=== PATIENT | female | born 1940 | race Caucasian/White ===

== ENCOUNTER → 2016-12-15 | Outpatient (CLI) | payer OTHER, MEDICAID ==
[~2016-12-15] MED LIST: E-Z-GAS II EFFERVESCENT PACKET (SODIUM BICARB./CITRIC ACID/SIMETHICONE) As Ordered ONE; E-Z-HD 98% w/w 340GM SUSP BTL As Ordered ONE; E-Z-PAQUE 96% w/w SUSP 176GM BTL As Ordered ONE
--- NOTE | 2016-12-16 11:13 | REP ---
Esophagram The procedure was performed under the direct supervision of Dr. Madrigal. The images were reviewed with Dr. Madrigal. 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 The superior mediastinal structures are midline. The heart size is within normal limits. The lungs are clear. Liquid barium and gas producing granules were given in the erect position as well as liquid barium in the prone oblique positions in order to perform a double contrast esophagram examination. The oral and pharyngeal stages of deglutition are unremarkable. Esophageal transport is prompt and efficient and there is no esophagitis, stricture, mucosal ring or hiatal hernia. There is gastroesophageal reflux demonstrated to the level of the thoracic inlet. Impression: There is gastroesophageal reflux demonstrated to the level of the thoracic inlet otherwise unremarkable double contrast esophagram examination. 48 seconds of fluoro time was utilized for this procedure. Reviewed by EVGENY Lopez 12/15/2016 05:19 PSigned by Merlin Madrigal MD 12/16/2016 10:53 A
== END ==
LOC: EDSEX → M RAD 08:35
PROVIDERS: ATTEND Family Medicine
DX: R13.10 Dysphagia, unspecified (principal)

== ENCOUNTER → 2022-01-25 | Outpatient (REF) | payer MEDICARE ==
[2022-01-25 16:07] LABS: BASO # 0.1 10^3/uL (0.0-0.2); BASO % 1.1 % (0.0-1.0); EOS # 0.2 10^3/uL (0.0-0.5); HEMATOCRIT 39.5 % (36.0-47.0); HEMOGLOBIN 12.5 g/dl (12.0-15.5); LYMPH # 1.8 10^3/uL (1.5-5.0); LYMPH % 24.2 % (24.0-44.0); MEAN CORPUSCULAR HEMOGLOBIN 26.7 pg (27.0-33.0); MEAN CORPUSCULAR HGB CONC 31.6 g/dl (32.0-36.5); MEAN CORPUSCULAR VOLUME 84.4 fl (80.0-96.0); MONO # 0.5 10^3/uL (0.0-0.8); MONO % 6.4 % (2.0-8.0); NEUTROPHILS # 4.9 10^3/uL (1.5-8.5); NEUTROPHILS % 65.9 % (36.0-66.0); PLATELET COUNT, AUTOMATED 244 10^3/uL (150-450); RED BLOOD COUNT 4.68 10^6/uL (4.00-5.40); WHITE BLOOD COUNT 7.4 10^3/uL (4.0-10.0)
[2022-01-25 16:28] LABS: ALBUMIN 3.8 GM/DL (3.2-5.2); BILIRUBIN,TOTAL 0.4 MG/DL (0.2-1.0); CALCIUM LEVEL 8.8 MG/DL (8.8-10.2); CREATININE FOR GFR 1.33 MG/DL (0.55-1.30); POTASSIUM SERUM 4.9 MEQ/L (3.5-5.1); TOTAL PROTEIN 7.1 GM/DL (6.4-8.2)
[2022-01-25 19:35] LABS: HEMOGLOBIN A1c 6.1 %
== END ==
LOC: M SFHCCLAY 10:20
PROVIDERS: ATTEND Family Medicine
DX: E11.21 Type 2 diabetes mellitus with diabetic nephropathy (principal); I10 Essential (primary) hypertension; D64.9 Anemia, unspecified

== ENCOUNTER → 2022-07-22 | Outpatient (REF) | payer MEDICARE ==
[2022-07-22 17:25] LABS: BASO # 0.1 10^3/uL (0.0-0.2); EOS # 0.2 10^3/uL (0.0-0.5); EOS % 2.7 % (0.0-3.0); HEMATOCRIT 41.8 % (36.0-47.0); HEMOGLOBIN 12.8 g/dl (12.0-15.5); LYMPH # 1.7 10^3/uL (1.5-5.0); LYMPH % 21.4 % (24.0-44.0); MEAN CORPUSCULAR HEMOGLOBIN 26.2 pg (27.0-33.0); MEAN CORPUSCULAR HGB CONC 30.6 g/dl (32.0-36.5); MEAN CORPUSCULAR VOLUME 85.7 fl (80.0-96.0); MONO # 0.6 10^3/uL (0.0-0.8); MONO % 7.1 % (2.0-8.0); NEUTROPHILS # 5.4 10^3/uL (1.5-8.5); NEUTROPHILS % 67.2 % (36.0-66.0); PLATELET COUNT, AUTOMATED 226 10^3/uL (150-450); RED BLOOD COUNT 4.88 10^6/uL (4.00-5.40); WHITE BLOOD COUNT 8.1 10^3/uL (4.0-10.0)
[2022-07-22 17:46] LABS: HEMOGLOBIN A1c 6.2 %
[2022-07-22 18:24] LABS: ALBUMIN 3.9 GM/DL (3.2-5.2); BILIRUBIN,TOTAL 0.2 MG/DL (0.2-1.0); CALCIUM LEVEL 8.9 MG/DL (8.8-10.2); CHOLESTEROL RISK RATIO 2.086 (<5); CREATININE FOR GFR 1.53 MG/DL (0.55-1.30); GLOMERULAR FILTRATION RATE 34.9 (>39); THYROID STIMULATING HORMONE 1.47 uIU/ML (0.358-3.740); TOTAL PROTEIN 7.5 GM/DL (6.4-8.2)
== END ==
LOC: M SFHCCLAY 14:09
PROVIDERS: ATTEND Family Medicine
DX: E11.21 Type 2 diabetes mellitus with diabetic nephropathy (principal); I12.9 Hypertensive chronic kidney disease with stage 1 through stage 4 chronic kidney disease, or unspecified chronic kidney disease; D64.9 Anemia, unspecified; N18.32 Chronic kidney disease, stage 3b

== ENCOUNTER 2023-05-13 12:07 | Inpatient (IN) | payer MEDICARE ==
[2023-05-13] VITALS (33 sets, daily range): BP systolic 98–188; BP diastolic 55–99; TEMP 97.1–99.6; O2SAT 88–100
[~2023-05-13] VITALS: Ht 157.5 cm; Wt 48.1 kg
[2023-05-13] MEDS ORDERED: D5W/LR 1,000 ML IV SCH (14:45)
[2023-05-13 14:47] LABS: MEAN CORPUSCULAR HEMOGLOBIN 26.3 pg (27.0-33.0); MEAN CORPUSCULAR HGB CONC 29.5 g/dl (32.0-36.5); MEAN CORPUSCULAR VOLUME 89.1 fl (80.0-96.0); PLATELET COUNT, AUTOMATED 305 10^3/uL (150-450); RED BLOOD COUNT 1.37 10^6/uL (4.00-5.40); WHITE BLOOD COUNT 22.7 10^3/uL (4.0-10.0)
[2023-05-13 14:54] LABS: HEMATOCRIT 12.2 % (36.0-47.0)
[2023-05-13 14:55] LABS: HEMOGLOBIN 3.6 g/dl (12.0-15.5)
[2023-05-13] MEDS ORDERED: PROTHROMBIN COMPLEX CONCEN IV ONE (15:05)
[2023-05-13 15:08] LABS: INR 1.32; PROTHROMBIN TIME 16.6 SECONDS (12.5-14.5)
[2023-05-13 15:09] LABS: PARTIAL THROMBOPLASTIN TIME 24.4 SECONDS (24.8-34.2)
[2023-05-13 15:12] LABS: ALBUMIN 2.1 G/DL (3.2-5.2); ALKALINE PHOSPHATASE 99 U/L (46-116); ALT/SGPT < 9 U/L (7.0-40); AST/SGOT 11 U/L (<34); BILIRUBIN,TOTAL < 0.2 MG/DL (0.3-1.2); BLOOD UREA NITROGEN 89 MG/DL (9-23); CALCIUM LEVEL 7.7 MG/DL (8.3-10.6); CARBON DIOXIDE LEVEL 14 MMOL/L (20-31); CHLORIDE LEVEL 109 MMOL/L (98-107); CREATININE FOR GFR 1.56 MG/DL (0.55-1.30); GLUCOSE, FASTING 237 MG/DL (74-106); MAGNESIUM LEVEL 1.8 MG/DL (1.8-2.4); PHOSPHORUS LEVEL 5.6 MG/DL (2.4-5.1); POTASSIUM SERUM 5.3 MMOL/L (3.5-5.1); SODIUM LEVEL 138 MMOL/L (136-145); TOTAL PROTEIN 4.6 G/DL (5.7-8.2)
[2023-05-13] MEDS ORDERED: GLUCOSE 4GM CHEW TABLET PO PRN (15:45)
[2023-05-13] MEDS ORDERED: DEXTROSE 50% 50ML SYRINGE IV PRN (15:45)
[2023-05-13] MEDS: LR 1,000 ML IV SCH (15:46)
[2023-05-13] MEDS ORDERED: ROSU5TAB5 PO (15:54)
[2023-05-13] MEDS ORDERED: LIDO1PAD TOP (15:54)
[2023-05-13] MEDS ORDERED: INCR1INH INH (15:54)
[2023-05-13] MEDS ORDERED: HYDR-3713 PO (15:54)
[2023-05-13] MEDS ORDERED: METF500T13 PO (15:54)
[2023-05-13] MEDS ORDERED: METO1TAB87 PO (15:54)
[2023-05-13] MEDS ORDERED: XARE15TA PO (15:54)
[2023-05-13] MEDS ORDERED: ONDA4TAB6 PO (15:54)
[2023-05-13] MEDS ORDERED: MED REC COMMENT (15:55)
[2023-05-13 16:20] LABS: PROCALCITONIN 2.59 ng/ml
[2023-05-13] MEDS ORDERED: HOME MED LIST COMPLETE! XX SCH (17:30)
[2023-05-13] MEDS: PANTOPRAZOLE 40MG VIAL IV SCH (17:36)
[2023-05-13] MEDS: INSULIN LISPRO (NovoLOG) PER UNIT SC SCH ×2 (17:54→23:22)
[2023-05-13] MEDS ORDERED: hydrALAZINE 20MG/ML 1ML VIAL IV ONE (20:00)
[2023-05-13 22:17] LABS: BASO % 0.2 % (0.0-1.0); HEMATOCRIT 25.9 % (36.0-47.0); HEMOGLOBIN 8.6 g/dl (12.0-15.5); LYMPH % 4.9 % (24.0-44.0); MEAN CORPUSCULAR HEMOGLOBIN 29.3 pg (27.0-33.0); MEAN CORPUSCULAR HGB CONC 33.2 g/dl (32.0-36.5); MEAN CORPUSCULAR VOLUME 88.1 fl (80.0-96.0); MONO % 4.9 % (2.0-8.0); NEUTROPHILS # 17.6 10^3/uL (1.5-8.5); NEUTROPHILS % 88.1 % (36.0-66.0); PLATELET COUNT, AUTOMATED 236 10^3/uL (150-450); RED BLOOD COUNT 2.94 10^6/uL (4.00-5.40); WHITE BLOOD COUNT 19.9 10^3/uL (4.0-10.0)
[2023-05-14] VITALS (23 sets, daily range): BP systolic 95–164; BP diastolic 54–109; TEMP 98.3–100.3; O2SAT 96–100
[2023-05-14 03:14] LABS: HEMATOCRIT 31.6 % (36.0-47.0)
[2023-05-14 03:19] LABS: HEMOGLOBIN 10.6 g/dl (12.0-15.5)
[2023-05-14] MEDS: PANTOPRAZOLE 40MG VIAL IV SCH (05:15)
[2023-05-14 05:46] LABS: BASO % 0.2 % (0.0-1.0); HEMATOCRIT 30.2 % (36.0-47.0); HEMOGLOBIN 10.3 g/dl (12.0-15.5); LYMPH % 5.5 % (24.0-44.0); MEAN CORPUSCULAR HEMOGLOBIN 29.6 pg (27.0-33.0); MEAN CORPUSCULAR HGB CONC 34.1 g/dl (32.0-36.5); MEAN CORPUSCULAR VOLUME 86.8 fl (80.0-96.0); MONO % 5.6 % (2.0-8.0); NEUTROPHILS # 15.7 10^3/uL (1.5-8.5); NEUTROPHILS % 86.2 % (36.0-66.0); PLATELET COUNT, AUTOMATED 200 10^3/uL (150-450); RED BLOOD COUNT 3.48 10^6/uL (4.00-5.40); WHITE BLOOD COUNT 18.1 10^3/uL (4.0-10.0)
[2023-05-14 05:58] LABS: ALBUMIN 2.2 G/DL (3.2-5.2); ALKALINE PHOSPHATASE 95 U/L (46-116); ALT/SGPT < 9 U/L (7.0-40); AST/SGOT 13 U/L (<34); BILIRUBIN,TOTAL 0.6 MG/DL (0.3-1.2); BLOOD UREA NITROGEN 74 MG/DL (9-23); CALCIUM LEVEL 7.5 MG/DL (8.3-10.6); CARBON DIOXIDE LEVEL 20 MMOL/L (20-31); CHLORIDE LEVEL 112 MMOL/L (98-107); CREATININE FOR GFR 1.31 MG/DL (0.55-1.30); GLOMERULAR FILTRATION RATE 41.6 (>32); GLUCOSE, FASTING 203 MG/DL (74-106); MAGNESIUM LEVEL 1.8 MG/DL (1.8-2.4); PHOSPHORUS LEVEL 3.8 MG/DL (2.4-5.1); POTASSIUM SERUM 4.4 MMOL/L (3.5-5.1); SODIUM LEVEL 141 MMOL/L (136-145); TOTAL PROTEIN 4.5 G/DL (5.7-8.2)
[2023-05-14] MEDS: INSULIN LISPRO (NovoLOG) PER UNIT SC SCH ×2 (06:00→12:00)
[2023-05-14 06:01] LABS: INR 1.1; PROTHROMBIN TIME 14.4 SECONDS (12.5-14.5)
[2023-05-14 06:02] LABS: PARTIAL THROMBOPLASTIN TIME 26.5 SECONDS (24.8-34.2)
[2023-05-14] MEDS ORDERED: MAG SULF 1GM/100ML (MAG RUN) 1 GM in IV 1 EA IV ONE (07:15)
[2023-05-14] MEDS ORDERED: LIDOCAINE 2% 100MG/5ML SDV (FOR ANES.) As Ordered ONE (07:59)
[2023-05-14] MEDS ORDERED: fentaNYL 100 MCG/2 ML INJECTION As Ordered ONE (07:59)
[2023-05-14] MEDS ORDERED: ONDANSETRON 4MG 2ML VIAL As Ordered ONE (07:59)
[2023-05-14] MEDS ORDERED: propofoL 200 MG/20 ML VIAL As Ordered ONE (07:59)
[2023-05-14] MEDS: LR 1,000 ML IV SCH (10:11)
[2023-05-14 12:29] LABS: HEMATOCRIT 24.2 % (36.0-47.0)
[2023-05-14 12:30] LABS: HEMOGLOBIN 8.1 g/dl (12.0-15.5)
== END 2023-05-14 13:22 | disposition short-term general hospital (02) | DRG 378 ==
LOC: ENRESERV 12:27 → M ICU 14:17
PROVIDERS: ADMIT Internal Medicine; ATTEND Internal Medicine
PROC: 30233N1 Transfusion of Nonautologous Red Blood Cells into Peripheral Vein, Percutaneous Approach (ICD-10-PCS; 2023-05-13)
PROC: 0DB98ZX Excision of Duodenum, Via Natural or Artificial Opening Endoscopic, Diagnostic (ICD-10-PCS; principal; 2023-05-14 09:00)
DX: K92.2 Gastrointestinal hemorrhage, unspecified (principal); E87.20 Acidosis, unspecified; K56.609 Unspecified intestinal obstruction, unspecified as to partial versus complete obstruction; R53.1 Weakness; R11.2 Nausea with vomiting, unspecified; I10 Essential (primary) hypertension; I48.91 Unspecified atrial fibrillation; E11.40 Type 2 diabetes mellitus with diabetic neuropathy, unspecified; J44.9 Chronic obstructive pulmonary disease, unspecified; J45.909 Unspecified asthma, uncomplicated; F41.9 Anxiety disorder, unspecified; K21.9 Gastro-esophageal reflux disease without esophagitis; M19.90 Unspecified osteoarthritis, unspecified site; Z98.41 Cataract extraction status, right eye; Z79.84 Long term (current) use of oral hypoglycemic drugs; Z79.891 Long term (current) use of opiate analgesic; Z79.899 Other long term (current) drug therapy; Z88.0 Allergy status to penicillin; Z88.2 Allergy status to sulfonamides; Z88.8 Allergy status to other drugs, medicaments and biological substances

== ENCOUNTER 2025-09-09 02:26 | Inpatient (IN) | payer MEDICAID, MEDICARE ==
[~2025-09-09] VITALS: Ht 160 cm; Wt 40.7 kg
[~2025-09-09 02:26] MED LIST changes: -E-Z-GAS II EFFERVESCENT PACKET (SODIUM BICARB./CITRIC ACID/SIMETHICONE) As Ordered ONE; -E-Z-HD 98% w/w 340GM SUSP BTL As Ordered ONE; -E-Z-PAQUE 96% w/w SUSP 176GM BTL As Ordered ONE; +HYDR-3713 PO; +INCR1INH INH; +LIDO1PAD TOP; +MED REC COMMENT; +METF500T13 PO; +METO1TAB87 PO; +ONDA-282 PO; +ROSU5TAB49 PO; +XARE15TA PO
[2025-09-09 04:31] LABS: VENOUS PH 7.369 UNITS (7.330-7.430)
[2025-09-09 04:32] LABS: VENOUS BASE EXCESS -1.8 (-2.0-2.0); VENOUS HCO3 23.5 MMOL/L (23.0-27.0); VENOUS O2 SATURATION 98.9 % (60.0-80.0); VENOUS PARTIAL PRESSURE CO2 41.6 mmHg (38.0-50.0); VENOUS PARTIAL PRESSURE O2 183.3 mmHg (30.0-50.0); VENOUS STANDARD HCO3 23.0 MMOL/L; VENOUS TOTAL CO2 24.7 MMOL/L (24.0-28.0)
[2025-09-09 05:20] LABS: ETHYL ALCOHOL (ETHANOL) < 0.003 % (0.000-0.010)
[2025-09-09 05:22] LABS: BASO # 0.0 10^3/uL (0.0-0.2); BASO % 0.7 % (0.0-1.0); EOS # 0.1 10^3/uL (0.0-0.5); EOS % 1.7 % (0.0-3.0); LYMPH # 1.2 10^3/uL (1.5-5.0); LYMPH % 21.4 % (24.0-44.0); MONO # 0.4 10^3/uL (0.0-0.8); MONO % 6.4 % (2.0-8.0); NEUTROPHILS # 3.8 10^3/uL (1.5-8.5); NEUTROPHILS % 69.1 % (36.0-66.0); PLATELET COUNT, AUTOMATED 206 10^3/uL (150-450)
[2025-09-09 05:35] LABS: CALCIUM LEVEL 7.8 MG/DL (8.3-10.6); CARBON DIOXIDE LEVEL 23 MMOL/L (20-31); CHLORIDE LEVEL 107 MMOL/L (98-107); CK-MB VALUE MASS < 1.0 NG/ML (<3.6); CREATININE FOR GFR 1.83 MG/DL (0.55-1.30); FREE T4 1.24 NG/DL (0.89-1.76); GLOMERULAR FILTRATION RATE 27.2 (>32); MAGNESIUM LEVEL 1.6 MG/DL (1.8-2.4); POTASSIUM SERUM 4.6 MMOL/L (3.5-5.1); SODIUM LEVEL 140 MMOL/L (136-145)
[2025-09-09 05:39] LABS: CPK CREATINE PHOSPHOKINASE 51 U/L (34-145)
[2025-09-09 05:56] LABS: CK-MB VALUE MASS < 1.0 NG/ML (<3.6)
[2025-09-09 05:57] LABS: CPK CREATINE PHOSPHOKINASE 37 U/L (34-145)
[2025-09-09] MEDS: NS 500 ML IV ONE (06:15)
[2025-09-09 07:42] LABS: KETONE, URINE AUTO RFX NEGATIVE (NEGATIVE); MUCUS, URINE RFX SMALL (NEGATIVE); NITRITE, URINE AUTO RFX NEGATIVE (NEGATIVE); RBC, URINE AUTO RFX 1 /HPF (0-3); SQUAM EPITHELIAL CELL UR AURFX 1 /HPF (0-6); WBC, URINE AUTO RFX 6 /HPF (0-3)
[2025-09-09 07:46] LABS: LEUKOCYTE ESTERASE UR AUTO RFX 1+ (NEGATIVE)
[2025-09-09 08:02] LABS: AMPHETAMINES LEVEL URINE NEGATIVE (NEGATIVE); BARBITURATES URINE NEGATIVE (NEGATIVE); BENZODIAZEPINES URINE NEGATIVE (NEGATIVE); COCAINE METABOLITE URINE NEGATIVE (NEGATIVE); METHADONE URINE NEGATIVE (NEGATIVE); PHENCYCLIDINE URINE NEGATIVE (NEGATIVE)
[2025-09-09 08:26] LABS: CANNABINOIDS URINE POSITIVE (NEGATIVE); OPIATES URINE POSITIVE (NEGATIVE)
[2025-09-09] MEDS ORDERED: cefTRIAXone SOD 1 GM in DEXTROSE 5% (D5W) ADV/MINI-BAG 50 ML IV ONE (09:40)
[2025-09-09] MEDS ORDERED: LISI5TAB11 PO (10:46)
[2025-09-09] MEDS ORDERED: ELIQ2.5T PO (10:46)
[2025-09-09] MEDS ORDERED: ASPI81TA26 PO (10:46)
[2025-09-09] MEDS ORDERED: CARV3.12 PO (10:46)
[2025-09-09] MEDS ORDERED: ATOR40TA75 PO (10:46)
[2025-09-09] MEDS ORDERED: HOME MED LIST COMPLETE! XX SCH (10:50)
[2025-09-09] MEDS: NS (Normal Saline) 0.9% 1,000 ML IV SCH (10:54)
[2025-09-09] MEDS: cefTRIAXone SOD 1 GM in DEXTROSE 5% (D5W) ADV/MINI-BAG 50 ML IV SCH (10:55)
[2025-09-09] MEDS: MAG SULF 1GM/100ML (MAG RUN) 1 GM in IV 1 EA IV SCH (11:52)
[2025-09-09] MEDS: **hydrALAZINE** 50 MG TAB PO ONE (14:59)
[2025-09-09 16:55] VITALS: BP 152/67; TEMP 98.6; O2SAT 98
[2025-09-09] MEDS: **hydrALAZINE HCL** 25 MG TAB PO SCH (18:11)
[2025-09-09 19:41] VITALS: BP 161/70; TEMP 97.1; O2SAT 97
[2025-09-09] MEDS: APIXABAN 2.5 MG TAB PO SCH (21:23)
[2025-09-09 23:41] VITALS: BP 168/74; TEMP 97.7; O2SAT 98
[2025-09-10] VITALS (8 sets, daily range): BP systolic 100–175; BP diastolic 60–93; TEMP 97–98.2; O2SAT 92–97
[2025-09-10 05:42] LABS: PLATELET COUNT, AUTOMATED 176 10^3/uL (150-450)
[2025-09-10 06:13] LABS: CALCIUM LEVEL 7.9 MG/DL (8.3-10.6); CARBON DIOXIDE LEVEL 22.0 MMOL/L (20-31); CHLORIDE LEVEL 108.0 MMOL/L (98-107); CREATININE FOR GFR 1.35 MG/DL (0.55-1.30); GLOMERULAR FILTRATION RATE 39.2 (>32); MAGNESIUM LEVEL 2.0 MG/DL (1.8-2.4); POTASSIUM SERUM 4.6 MMOL/L (3.5-5.1); SODIUM LEVEL 139.0 MMOL/L (136-145)
[2025-09-10] MEDS: ASPIRIN 81 MG ENTERIC TABLET PO SCH (08:22)
[2025-09-10] MEDS: ATORVASTATIN 20 MG TAB PO SCH (08:22)
[2025-09-10] MEDS: NS (Normal Saline) 0.9% 1,000 ML IV SCH (16:56)
[2025-09-11] VITALS (7 sets, daily range): BP systolic 142–180; BP diastolic 66–88; TEMP 96.9–98.3; O2SAT 96–98
[2025-09-11 06:13] LABS: PLATELET COUNT, AUTOMATED 174 10^3/uL (150-450)
[2025-09-11 06:41] LABS: CALCIUM LEVEL 7.4 MG/DL (8.3-10.6); CARBON DIOXIDE LEVEL 21.0 MMOL/L (20-31); CHLORIDE LEVEL 108.0 MMOL/L (98-107); CREATININE FOR GFR 1.21 MG/DL (0.55-1.30); GLOMERULAR FILTRATION RATE 44.8 (>32); MAGNESIUM LEVEL 1.7 MG/DL (1.8-2.4); POTASSIUM SERUM 4.0 MMOL/L (3.5-5.1); SODIUM LEVEL 138.0 MMOL/L (136-145)
[2025-09-11] MEDS: MAG SULF 1GM/100ML (MAG RUN) 1 GM in IV 1 EA IV ONE (08:58)
[2025-09-11] MEDS: ONDANSETRON 4MG/2ML VIAL IV ONE (15:19)
[2025-09-12] VITALS (8 sets, daily range): BP systolic 112–175; BP diastolic 60–80; TEMP 97.1–98.8; O2SAT 93–97
[2025-09-12 08:31] LABS: PLATELET COUNT, AUTOMATED 247 10^3/uL (150-450)
[2025-09-12 09:01] LABS: CALCIUM LEVEL 7.7 MG/DL (8.3-10.6); CARBON DIOXIDE LEVEL 17.0 MMOL/L (20-31); CHLORIDE LEVEL 109.0 MMOL/L (98-107); CREATININE FOR GFR 1.15 MG/DL (0.55-1.30); GLOMERULAR FILTRATION RATE 47.6 (>32); MAGNESIUM LEVEL 1.8 MG/DL (1.8-2.4); POTASSIUM SERUM 4.3 MMOL/L (3.5-5.1); SODIUM LEVEL 139.0 MMOL/L (136-145)
[2025-09-12 15:48] LABS: CK-MB VALUE MASS 3.4 NG/ML (<3.6)
[2025-09-12 16:19] LABS: CPK CREATINE PHOSPHOKINASE 69.0 U/L (34-145); MB/CK RELATIVE INDEX 4.92 (< OR =4)
[2025-09-12 23:41] LABS: CK-MB VALUE MASS 3.2 NG/ML (<3.6)
[2025-09-12 23:45] LABS: CPK CREATINE PHOSPHOKINASE 61.0 U/L (34-145); MB/CK RELATIVE INDEX 5.24 (< OR =4)
[2025-09-13] VITALS (9 sets, daily range): BP systolic 129–158; BP diastolic 60–86; TEMP 96.9–97.5; O2SAT 96–98
[2025-09-13 02:42] LABS: CK-MB VALUE MASS 2.9 NG/ML (<3.6)
[2025-09-13 02:46] LABS: CPK CREATINE PHOSPHOKINASE 63.0 U/L (34-145); MB/CK RELATIVE INDEX 4.6 (< OR =4)
[2025-09-13] MEDS: CIPROFLOXACIN 500 MG TABLET PO SCH (05:26)
[2025-09-13 07:33] LABS: PLATELET COUNT, AUTOMATED 167 10^3/uL (150-450)
[2025-09-13 08:03] LABS: CALCIUM LEVEL 6.9 MG/DL (8.3-10.6); CARBON DIOXIDE LEVEL 20.0 MMOL/L (20-31); CHLORIDE LEVEL 108.0 MMOL/L (98-107); CK-MB VALUE MASS 3.1 NG/ML (<3.6); CREATININE FOR GFR 1.23 MG/DL (0.55-1.30); GLOMERULAR FILTRATION RATE 43.9 (>32); MAGNESIUM LEVEL 1.7 MG/DL (1.8-2.4); POTASSIUM SERUM 4.1 MMOL/L (3.5-5.1); SODIUM LEVEL 135.0 MMOL/L (136-145)
[2025-09-13 08:10] LABS: CPK CREATINE PHOSPHOKINASE 67.0 U/L (34-145); MB/CK RELATIVE INDEX 4.62 (< OR =4)
[2025-09-14 00:37] VITALS: BP 156/73; TEMP 97.1; O2SAT 96
[2025-09-14 03:57] VITALS: BP 129/65; TEMP 97.3; O2SAT 98
[2025-09-14 05:44] LABS: PLATELET COUNT, AUTOMATED 219 10^3/uL (150-450)
[2025-09-14 06:09] LABS: CALCIUM LEVEL 7.1 MG/DL (8.3-10.6); CARBON DIOXIDE LEVEL 21.0 MMOL/L (20-31); CHLORIDE LEVEL 106.0 MMOL/L (98-107); CREATININE FOR GFR 1.19 MG/DL (0.55-1.30); GLOMERULAR FILTRATION RATE 45.7 (>32); MAGNESIUM LEVEL 1.8 MG/DL (1.8-2.4); POTASSIUM SERUM 4.4 MMOL/L (3.5-5.1); SODIUM LEVEL 136.0 MMOL/L (136-145)
[2025-09-14 07:50] VITALS: BP 151/71; TEMP 98; O2SAT 98
[2025-09-14 12:49] VITALS: BP 144/72; TEMP 97.8; O2SAT 97
[2025-09-14 20:08] VITALS: BP 124/58; TEMP 97.4; O2SAT 96
[2025-09-15] VITALS (7 sets, daily range): BP systolic 124–158; BP diastolic 60–70; TEMP 97.2–98.3; O2SAT 95–98
[2025-09-15 07:33] LABS: PLATELET COUNT, AUTOMATED 179 10^3/uL (150-450)
[2025-09-15] MEDS ORDERED: CARV6.25 PO (08:00)
[2025-09-15] MEDS ORDERED: HYDR25TA87 PO (08:00)
[2025-09-15 08:28] LABS: CALCIUM LEVEL 6.9 MG/DL (8.3-10.6); CARBON DIOXIDE LEVEL 20.0 MMOL/L (20-31); CHLORIDE LEVEL 109.0 MMOL/L (98-107); CREATININE FOR GFR 1.38 MG/DL (0.55-1.30); GLOMERULAR FILTRATION RATE 38.2 (>32); MAGNESIUM LEVEL 1.6 MG/DL (1.8-2.4); POTASSIUM SERUM 4.7 MMOL/L (3.5-5.1); SODIUM LEVEL 139.0 MMOL/L (136-145)
[2025-09-16 04:07] VITALS: BP 139/72; TEMP 97.2; O2SAT 95
[2025-09-16 05:46] LABS: PLATELET COUNT, AUTOMATED 186 10^3/uL (150-450)
[2025-09-16 06:18] LABS: CALCIUM LEVEL 6.9 MG/DL (8.3-10.6); CARBON DIOXIDE LEVEL 24.0 MMOL/L (20-31); CHLORIDE LEVEL 107.0 MMOL/L (98-107); CREATININE FOR GFR 1.35 MG/DL (0.55-1.30); GLOMERULAR FILTRATION RATE 39.2 (>32); MAGNESIUM LEVEL 1.7 MG/DL (1.8-2.4); POTASSIUM SERUM 4.4 MMOL/L (3.5-5.1); SODIUM LEVEL 136.0 MMOL/L (136-145)
[2025-09-16] MEDS: MAG SULF 1GM/100ML (MAG RUN) 1 GM in IV 1 EA IV SCH (07:30)
[2025-09-16 08:08] VITALS: BP 96/53; TEMP 97; O2SAT 96
[2025-09-16] MEDS: NICOTINE 21 MG/24 HR 1 EA TRANSDERMAL TD SCH (09:24)
[2025-09-16] MEDS: LACTULOSE 20 GM/30 ML SYRUP UDC PO ONE (10:16)
[2025-09-16] MEDS: CIPROFLOXACIN 250 MG TAB PO SCH (11:38)
[2025-09-16 11:40] VITALS: BP 136/63; TEMP 97.2; O2SAT 95
[2025-09-16] MEDS: SENNOSIDES/DOCUSATE SODIUM 8.6 MG/50MG TAB PO PRN (12:53)
[2025-09-16] MEDS: MIRALAX *UNIT DOSE* 17 GM PACKET PO PRN (12:53)
[2025-09-16 16:14] VITALS: BP 134/60; TEMP 97.3; O2SAT 94
[2025-09-16] MEDS: FLEET ENEMA PR PRN (17:02)
[2025-09-16 19:59] VITALS: BP 113/72; TEMP 98; O2SAT 97
[2025-09-16 23:51] VITALS: BP 110/56; TEMP 98.6; O2SAT 96
[2025-09-17 03:43] VITALS: BP 143/65; TEMP 99.3; O2SAT 96
[2025-09-17 06:38] LABS: PLATELET COUNT, AUTOMATED 213 10^3/uL (150-450)
[2025-09-17 07:05] LABS: CALCIUM LEVEL 7.2 MG/DL (8.3-10.6); CARBON DIOXIDE LEVEL 23.0 MMOL/L (20-31); CHLORIDE LEVEL 105.0 MMOL/L (98-107); CREATININE FOR GFR 1.42 MG/DL (0.55-1.30); GLOMERULAR FILTRATION RATE 36.9 (>32); MAGNESIUM LEVEL 2.1 MG/DL (1.8-2.4); POTASSIUM SERUM 4.8 MMOL/L (3.5-5.1); SODIUM LEVEL 135.0 MMOL/L (136-145)
[2025-09-17 12:00] VITALS: BP 110/51; TEMP 97.9; O2SAT 97
[2025-09-17] MEDS ORDERED: CIPR-250 PO (12:38)
== END 2025-09-17 16:17 | disposition home or self-care (01) | DRG 689 ==
LOC: M ED 02:26 → M ED INP 09:38 → M PCU 16:55 → M MSPAV 09-16 23:45
PROVIDERS: ADMIT Internal Medicine; ATTEND Student in an Organized Health Care Education/Training Program
DX: N39.0 Urinary tract infection, site not specified (principal); G93.41 Metabolic encephalopathy; N17.9 Acute kidney failure, unspecified; F03.90 Unspecified dementia, unspecified severity, without behavioral disturbance, psychotic disturbance, mood disturbance, and anxiety; I12.9 Hypertensive chronic kidney disease with stage 1 through stage 4 chronic kidney disease, or unspecified chronic kidney disease; E11.22 Type 2 diabetes mellitus with diabetic chronic kidney disease; J44.9 Chronic obstructive pulmonary disease, unspecified; N18.30 Chronic kidney disease, stage 3 unspecified; I48.91 Unspecified atrial fibrillation; R00.1 Bradycardia, unspecified; E83.42 Hypomagnesemia; K59.00 Constipation, unspecified; Z79.899 Other long term (current) drug therapy; Z88.0 Allergy status to penicillin; Z88.2 Allergy status to sulfonamides; Z88.8 Allergy status to other drugs, medicaments and biological substances; Z86.73 Personal history of transient ischemic attack (TIA), and cerebral infarction without residual deficits; Z79.01 Long term (current) use of anticoagulants

== ENCOUNTER 2025-10-07 23:20 | Inpatient (IN) | payer MEDICARE ==
[~2025-10-07] VITALS: Ht 157.5 cm; Wt 37.8 kg
[~2025-10-07 23:20] MED LIST changes: +ASPI81TA26 PO; +ATOR40TA75 PO; +CARV3.12 PO; +CARV6.25 PO; +CIPR-250 PO; +ELIQ2.5T PO; +HYDR25TA87 PO; +LISI5TAB11 PO
[2025-10-08 00:08] LABS: KETONE, URINE AUTO RFX NEGATIVE (NEGATIVE); LEUKOCYTE ESTERASE UR AUTO RFX 2+ (NEGATIVE); MUCUS, URINE RFX SMALL (NEGATIVE); NITRITE, URINE AUTO RFX POSITIVE (NEGATIVE); RBC, URINE AUTO RFX 3 /HPF (0-3); SQUAM EPITHELIAL CELL UR AURFX 7 /HPF (0-6); WBC, URINE AUTO RFX 172 /HPF (0-3)
[2025-10-08 00:13] LABS: INR 0.97
[2025-10-08 00:14] LABS: C REACTIVE PROTEIN QUANTITATIV 0.58 MG/DL (<1.0)
[2025-10-08 00:27] LABS: ALT/SGPT 42 U/L (7.0-40); AST/SGOT 74 U/L (<34); CALCIUM LEVEL 8.4 MG/DL (8.3-10.6); CARBON DIOXIDE LEVEL 24 MMOL/L (20-31); CHLORIDE LEVEL 107 MMOL/L (98-107); CREATININE FOR GFR 1.35 MG/DL (0.55-1.30); GLOMERULAR FILTRATION RATE 39.2 (>32); POTASSIUM SERUM 4.7 MMOL/L (3.5-5.1); SODIUM LEVEL 142 MMOL/L (136-145)
[2025-10-08 00:31] LABS: BASO # 0.0 10^3/uL (0.0-0.2); BASO % 0.8 % (0.0-1.0); EOS # 0.1 10^3/uL (0.0-0.5); EOS % 1.5 % (0.0-3.0); LYMPH # 0.7 10^3/uL (1.5-5.0); LYMPH % 14.3 % (24.0-44.0); MONO # 0.4 10^3/uL (0.0-0.8); MONO % 7.3 % (2.0-8.0); NEUTROPHILS # 3.9 10^3/uL (1.5-8.5); NEUTROPHILS % 75.5 % (36.0-66.0); PLATELET COUNT, AUTOMATED 224 10^3/uL (150-450)
[2025-10-08] MEDS ORDERED: ISOVUE-370 76% 100 ML VIAL As Ordered ONE (00:56)
[2025-10-08] MEDS: hydrALAZINE 20 MG/ML 1 ML VIAL IV ONE (04:09)
[2025-10-08 04:17] LABS: CK-MB VALUE MASS < 1.0 NG/ML (<3.6)
[2025-10-08 04:21] LABS: CPK CREATINE PHOSPHOKINASE 21 U/L (34-145)
[2025-10-08 04:41] LABS: CK-MB VALUE MASS 1.0 NG/ML (<3.6)
[2025-10-08 04:44] LABS: CPK CREATINE PHOSPHOKINASE 28.0 U/L (34-145); MB/CK RELATIVE INDEX 3.57 (< OR =4)
[2025-10-08] MEDS: CEFEPIME HCL 2 GM in DEXTROSE 5% (D5W) ADV/MINI-BAG 50 ML IV ONE (05:10)
[2025-10-08] MEDS ORDERED: DEXTROSE 50% 50 ML SYRINGE IV PRN (05:30)
[2025-10-08] MEDS ORDERED: ONDANSETRON 4MG/2ML VIAL IV PRN (05:30)
[2025-10-08] MEDS ORDERED: MOM 30 ML SUSPENSION UDC PO PRN (05:30)
[2025-10-08] MEDS ORDERED: GLUCAGON INJ 1 MG VIAL SC PRN (05:30)
[2025-10-08] MEDS ORDERED: GLUCOSE 4 GM CHEW PO PRN (05:30)
[2025-10-08] MEDS: **hydrALAZINE HCL** 25 MG TAB PO SCH (06:32)
[2025-10-08] MEDS: NS (Normal Saline) 0.9% 1,000 ML IV SCH (06:32)
[2025-10-08] MEDS: LevoFLOXacin IV 500 MG in IV 1 EA IV ONE (07:12)
[2025-10-08] MEDS: INSULIN LISPRO (NovoLOG) PER UNIT SC SCH ×2 (08:03→21:00)
[2025-10-08] MEDS ORDERED: HYDR25TA88 PO (08:29)
[2025-10-08] MEDS ORDERED: ALPR0.25 PO (08:29)
[2025-10-08] MEDS ORDERED: HOME MED LIST COMPLETE! XX SCH (08:30)
[2025-10-08] MEDS: APIXABAN 2.5 MG TAB PO SCH (09:20)
[2025-10-08] MEDS: PANTOPRAZOLE 40MG TAB PO SCH (09:20)
[2025-10-08 11:00] VITALS: BP 157/67; TEMP 98.2; O2SAT 96
[2025-10-08] MEDS ORDERED: ALPRAZolam 0.25 MG TAB PO PRN (12:00)
[2025-10-08] MEDS: ASPIRIN 81 MG ENTERIC TABLET PO SCH (12:28)
[2025-10-08] MEDS: ATORVASTATIN 20 MG TAB PO SCH (12:28)
[2025-10-08 21:08] VITALS: BP 169/72; TEMP 98.7; O2SAT 96
[2025-10-08] MEDS: traZODone 50 MG TAB PO PRN (21:36)
[2025-10-09] VITALS (7 sets, daily range): BP systolic 148–193; BP diastolic 67–94; TEMP 98.3–100.3; O2SAT 95–96
[2025-10-09] MEDS: ACETAMINOPHEN 325 MG TAB PO PRN (01:11)
[2025-10-09] MEDS: LevoFLOXacin IV 250 MG in IV 1 EA IV SCH (05:41)
[2025-10-09 06:44] LABS: PLATELET COUNT, AUTOMATED 167 10^3/uL (150-450)
[2025-10-09 07:17] LABS: ALT/SGPT 31.0 U/L (7.0-40); AST/SGOT 41.0 U/L (<34); CALCIUM LEVEL 7.1 MG/DL (8.3-10.6); CARBON DIOXIDE LEVEL 19.0 MMOL/L (20-31); CHLORIDE LEVEL 113.0 MMOL/L (98-107); CREATININE FOR GFR 1.39 MG/DL (0.55-1.30); GLOMERULAR FILTRATION RATE 37.9 (>32); MAGNESIUM LEVEL 1.6 MG/DL (1.8-2.4); POTASSIUM SERUM 4.1 MMOL/L (3.5-5.1); SODIUM LEVEL 142.0 MMOL/L (136-145)
[2025-10-09 08:29] LABS: CHOLESTEROL LEVEL 79.0 MG/DL (<200); CHOLESTEROL RISK RATIO 2.47 (<5); LDL CHOLESTEROL 35.3 MG/DL (<100); NON-HDL-C 47.1 MG/DL; TRIGLYCERIDES LEVEL 59.0 MG/DL (<150)
[2025-10-09 08:53] LABS: ESTIMATED AVERAGE GLUCOSE 120.0 MG/DL (60-110)
[2025-10-09] MEDS: MAG SULF 1GM/100ML (MAG RUN) 1 GM in IV 1 EA IV SCH (10:19)
[2025-10-09] MEDS: FUROSEMIDE 20 MG/2 ML VIAL IV SCH (18:12)
[2025-10-09] MEDS: MAGNESIUM OXIDE 400 MG TAB PO SCH (21:12)
[2025-10-10] VITALS (7 sets, daily range): BP systolic 109–182; BP diastolic 56–84; TEMP 97.3–98.3; O2SAT 95–97
[2025-10-10] MEDS: amLODIPine 5 MG TAB PO ONE (04:01)
[2025-10-10 06:52] LABS: PLATELET COUNT, AUTOMATED 212 10^3/uL (150-450)
[2025-10-10 07:17] LABS: ALT/SGPT 31.0 U/L (7.0-40); AST/SGOT 36.0 U/L (<34); CALCIUM LEVEL 7.2 MG/DL (8.3-10.6); CARBON DIOXIDE LEVEL 21.0 MMOL/L (20-31); CHLORIDE LEVEL 109.0 MMOL/L (98-107); CREATININE FOR GFR 1.46 MG/DL (0.55-1.30); GLOMERULAR FILTRATION RATE 35.7 (>32); POTASSIUM SERUM 4.2 MMOL/L (3.5-5.1); SODIUM LEVEL 142.0 MMOL/L (136-145)
[2025-10-10] MEDS: LINEZOLID 600 MG TABLET PO SCH (09:00)
[2025-10-10 16:42] LABS: IRON (FE) 16.0 UG/DL (50-170); PERCENT SATURATION 6.9 % (13.2-45.0)
[2025-10-10 16:45] LABS: VITAMIN B12 LEVEL 497.0 PG/ML (211-911)
[2025-10-10] MEDS: LINEZOLID 600 MG in IV 1 EA IV SCH (17:16)
[2025-10-10] MEDS ORDERED: RIVAROXABAN 15MG TAB PO SCH (21:00)
[2025-10-11 05:02] VITALS: BP 153/65; TEMP 98.3
[2025-10-11 08:03] LABS: PLATELET COUNT, AUTOMATED 216 10^3/uL (150-450)
[2025-10-11 08:34] LABS: ALT/SGPT 28.0 U/L (7.0-40); AST/SGOT 39.0 U/L (<34); CALCIUM LEVEL 7.0 MG/DL (8.3-10.6); CARBON DIOXIDE LEVEL 22.0 MMOL/L (20-31); CHLORIDE LEVEL 105.0 MMOL/L (98-107); CREATININE FOR GFR 1.5 MG/DL (0.55-1.30); GLOMERULAR FILTRATION RATE 34.6 (>32); POTASSIUM SERUM 3.9 MMOL/L (3.5-5.1); SODIUM LEVEL 140.0 MMOL/L (136-145)
[2025-10-11 09:50] VITALS: BP 156/77
[2025-10-11] MEDS: FUROSEMIDE 20 MG/2 ML VIAL IV ONE (09:55)
[2025-10-11] MEDS: ENOXAPARIN 40 MG/0.4 ML SYRINGE (J1650 PER 10MG) SC SCH (09:55)
[2025-10-11] MEDS: ATORVASTATIN 20 MG TAB PO SCH (09:56)
[2025-10-11 12:46] VITALS: BP 124/69; TEMP 97.8; O2SAT 97
[2025-10-11] MEDS ORDERED: MIRALAX *UNIT DOSE* 17 GM PACKET PO PRN (14:20)
[2025-10-11] MEDS: LINEZOLID 600 MG TABLET PO SCH (18:00)
[2025-10-11] MEDS ORDERED: DOCUSATE SODIUM 100 MG CAPSULE PO SCH (21:00)
[2025-10-11 21:07] VITALS: BP 132/60; TEMP 98.3; O2SAT 94
[2025-10-11] MEDS: DOCUSATE SOD LIQ 100 MG/10 ML UDC PO SCH (21:15)
[2025-10-11] MEDS: SENNA 8.6 MG TAB PO SCH (21:15)
[2025-10-12 04:57] VITALS: BP 131/68; TEMP 98.8; O2SAT 96
[2025-10-12 05:56] LABS: PLATELET COUNT, AUTOMATED 223 10^3/uL (150-450)
[2025-10-12 06:25] LABS: ALT/SGPT 21.0 U/L (7.0-40); AST/SGOT 34.0 U/L (<34); CALCIUM LEVEL 7.0 MG/DL (8.3-10.6); CARBON DIOXIDE LEVEL 24.0 MMOL/L (20-31); CHLORIDE LEVEL 104.0 MMOL/L (98-107); CREATININE FOR GFR 1.62 MG/DL (0.55-1.30); GLOMERULAR FILTRATION RATE 31.5 (>32); POTASSIUM SERUM 3.6 MMOL/L (3.5-5.1); SODIUM LEVEL 139.0 MMOL/L (136-145)
[2025-10-12] MEDS ORDERED: FERROUS SULFATE 325 MG TAB PO SCH (09:00)
[2025-10-12] MEDS: FERROUS SULFATE 300 MG/5 ML UDC LIQUID PO SCH (09:15)
[2025-10-12] MEDS: NS (Normal Saline) 0.9% 1,000 ML IV SCH ×2 (10:43→17:15)
[2025-10-12] MEDS: ALBUTEROL SULFATE 2.5 MG/0.5 ML INH CONCENTRATE NEB SOLN NEB PRN (11:37)
[2025-10-12 11:49] VITALS: BP 117/55; TEMP 98.2; O2SAT 96
[2025-10-12 13:00] VITALS: BP 117/55
[2025-10-12] MEDS ORDERED: SCOPOLAMINE 1MG TRANSDERMAL PATCH TOP PRN (16:35)
[2025-10-12] MEDS ORDERED: MORPHINE 10 MG/0.5 ML ORAL CONCENTRATE SOLUTION U/D SL PRN (16:35)
[2025-10-12] MEDS ORDERED: ONDANSETRON 4MG ORAL DISINTEGRATING TAB PO PRN (16:35)
[2025-10-12] MEDS ORDERED: HYOSCYAMINE SULFATE 0.125 MG SUBL TABLET PO PRN (16:35)
[2025-10-12] MEDS: DOCUSATE SOD LIQ 100 MG/10 ML UDC PO SCH (21:34)
[2025-10-12] MEDS: LORazepam 1 MG TAB PO PRN (21:35)
[2025-10-13] MEDS: MORPHINE 10 MG/0.5 ML ORAL CONCENTRATE SOLUTION U/D SL PRN (14:47)
[2025-10-17] MEDS ORDERED: MORP1SOL5 PO (08:16)
[2025-10-17] MEDS ORDERED: ATIV1TAB10 PO (08:16)
[2025-10-17] MEDS ORDERED: HYOS125TA PO (08:16)
== END 2025-10-17 12:43 | disposition hospice, home (50) | DRG 689 ==
LOC: EDBD 23:20 → M ED 23:20 → M ED INP 10-08 05:29 → M MSPAV 10-08 11:00
PROVIDERS: ADMIT Internal Medicine; ATTEND Internal Medicine
PROC: B246ZZZ Ultrasonography of Right and Left Heart (ICD-10-PCS; principal; 2025-10-11)
DX: N39.0 Urinary tract infection, site not specified (principal); G93.41 Metabolic encephalopathy; I50.33 Acute on chronic diastolic (congestive) heart failure; I63.9 Cerebral infarction, unspecified; E43 Unspecified severe protein-calorie malnutrition; I13.0 Hypertensive heart and chronic kidney disease with heart failure and stage 1 through stage 4 chronic kidney disease, or unspecified chronic kidney disease; G81.94 Hemiplegia, unspecified affecting left nondominant side; Z68.1 Body mass index [BMI] 19.9 or less, adult; Z66 Do not resuscitate; R05.9 Cough, unspecified; D50.9 Iron deficiency anemia, unspecified; F03.90 Unspecified dementia, unspecified severity, without behavioral disturbance, psychotic disturbance, mood disturbance, and anxiety; E11.22 Type 2 diabetes mellitus with diabetic chronic kidney disease; J44.9 Chronic obstructive pulmonary disease, unspecified; I48.91 Unspecified atrial fibrillation; N18.30 Chronic kidney disease, stage 3 unspecified; Z79.01 Long term (current) use of anticoagulants; Z79.82 Long term (current) use of aspirin; Z79.84 Long term (current) use of oral hypoglycemic drugs; Z79.899 Other long term (current) drug therapy; Z88.0 Allergy status to penicillin; Z88.2 Allergy status to sulfonamides; Z88.8 Allergy status to other drugs, medicaments and biological substances; Z86.73 Personal history of transient ischemic attack (TIA), and cerebral infarction without residual deficits; R13.12 Dysphagia, oropharyngeal phase